=== PATIENT | male | born 1945 | race Caucasian/White ===

== ENCOUNTER → 2017-01-02 | Outpatient (CLI) | payer OTHER, MEDICARE ==
[~2017-01-02] MED LIST: ALLOPURINOL 10100 M1 PO; ASPIRIN EC81 M1; ASPIRIN325 PO; CALCIUM + VIT1 EACH; CARVEDILOL3.125 MG PO; CELEXA40 MG PO; CIPROFLOXACIN500 M3; CRESTOR40 MG PO; FISH OIL 1,0001 EAC5; FISH OIL 1,2001 EAC4 PO; FISHOIL; FLAGYL500 MG; PACERONE 200 M200 M1 PO; PLAVIX 300 MG300 MG; VITAMIN D-32000 UNIT PO; VITAMIN D400 UNI1; XANAX 0.5 MG0.5 M1 PO; ZETIA; ZETIA10 MG PO
--- NOTE | ~2017-01-02 | 2DMMODE ---
[facility] [address] [place] [address] 2 D/M-MODE ECHOCARDIOGRAM Name: PHILIPRAZA Jina Room #: REG [facility]#: [id number] Admission: 01/02/17 Attend Phys: Ricky Hopper MD Discharge: Date of : 47 Date of Service: 01/02/17 1510 Report #: [id number] THIS REPORT FOR: //name// APPROVED REPORT Study performed: 01/02/2017 13:46:04 EXAM: Comprehensive 2D, Doppler, and color-flow Echocardiogram Patient Location: Out-Patient Room #: Echo lab Status: routine Other Information Study Quality: Good Indications ICD: CAD 2D Dimensions RVDd: 40.29 mm LVEF(%): 63.72 (>50%) IVSd: 11.31 (7-11mm) LVOT Diam: 22.35 (18-24mm) LVDd: 52.40 mm PWd: 10.60 (7-11mm) Ascending Ao: 31.50 (22-36mm) LVDs: 34.12 (25-40mm) Aortic Root: 34.71 mm IVC: 13.00 mm Cox's LVEF: 63.72 % Volumes Left Atrial Volume (Systole) Single Plane 4CH: 49.75 mL Single Plane 2CH: 45.05 mL LA ESV Index: 25.00 mL/m2 Aortic Valve AoV Peak Yoan.: 1.12 m/s AO Peak Gr.: 5.03 mmHg LVOT Max P.76 mmHg LVOT Max V: 0.97 m/s DALILA Vmax: 3.39 cm2 Mitral Valve E/A Ratio: 0.8 MV Decel. Time: 318.15 ms MV E Max Yoan.: 0.45 m/s MV A Yoan.: 0.53 m/s MV PHT: 92.26 ms [facility] [place] [address] 2 D/M-MODE ECHOCARDIOGRAM Name: RAZA PALACIOS Room #: [facility]#: [id number] Admission: 01/02/17 Attend Phys: Ricky Hopper MD Discharge: Date of : 47 Date of Service: 01/02/17 1510 Report #: [id number] IVRT: 143.02 ms Pulmonary Valve PV Peak Yoan.: 0.80 m/s PV Peak Gr.: 2.56 mmHg Pulmonary Vein P Vein S: 0.65 m/s P Vein A: 0.30 m/s P Vein D: 0.47 m/s P Vein A Dur.: 106.1 msec P Vein S/D Ratio: 1.38 Tricuspid Valve TR Peak Yoan.: 2.51 m/s RAP Estimate: 5.00 mmHg TR Peak Gr.: 25.25 mmHg PA Pressure: 30.00 mmHg Left Ventricle The left ventricle is normal size. There is normal left ventricular wall thickness. The left ventricular systolic function is normal. The left ventricular ejection fraction is within the normal range. LVEF is 55-60%. Grade I - abnormal relaxation pattern. Right Ventricle The right ventricle is normal size. The right ventricular systolic function is normal. Device lead is present in the right ventricle. Atria The left atrium size is normal. The right atrium size is normal. Device lead is present in the right atrium. Aortic Valve The aortic valve is normal in structure. No aortic regurgitation is present. There is no aortic valvular stenosis. Mitral Valve The mitral valve is normal in structure. Trace to mild mitral regurgitation. No evidence of mitral valve stenosis. Tricuspid Valve The tricuspid valve is normal in structure. There is trace tricuspid regurgitation. The right atrial pressure is estimated at 5 mmHg. There is no pulmonary hypertension. Pulmonic Valve The pulmonary valve is normal in structure. There is no pulmonic valvular regurgitation. [facility] [address] [place] [address] 2 D/M-MODE ECHOCARDIOGRAM Name: PHILIPRAZA Jina Room #: REG [facility]#: [id number] Admission: 01/02/17 Attend Phys: Ricky Hopper MD Discharge: Date of : 47 Date of Service: 01/02/17 1510 Report #: [id number] Great Vessels The aortic root is normal in size. IVC is normal in size and collapses >50% with inspiration. Pericardium There is no pericardial effusion. <Conclusion> The left ventricle is normal size. The left ventricular systolic function is normal. Grade I - abnormal relaxation pattern. The right ventricle is normal size. The left atrium size is normal. Device lead is present in the right ventricle. The aortic valve is normal in structure. Trace to mild mitral regurgitation. There is no pericardial effusion. <ELECTRONICALLY SIGNED> By: Ricky Hopper MD 01/02/17 1510 [id number] Ricky Hopper MD /INF
== END ==
LOC: CV 11:38
DX: I25.10 Atherosclerotic heart disease of native coronary artery without angina pectoris (principal)

== ENCOUNTER → 2017-07-31 | Outpatient (CLI) | payer OTHER, MEDICARE | LOC: RAD 11:22 | DX: J18.9 Pneumonia, unspecified organism (principal); J98.11 Atelectasis ==

== ENCOUNTER → 2018-10-07 | Outpatient (CLI) | payer OTHER, MEDICARE | LOC: RAD 10:14 | DX: R06.02 Shortness of breath (principal); Z79.899 Other long term (current) drug therapy; Z95.0 Presence of cardiac pacemaker ==

== ENCOUNTER → 2019-05-12 | Outpatient (CLI) | payer OTHER, MEDICARE ==
[~2019-05-12] MED LIST changes: +AUGMENTIN 875-1 EACH PO; +FENOFIBRATE150 MG PO; +LEVOXYL50 MCG PO; +MIRALAX119 GM PO
[2019-05-12 12:52] LABS: ALBUMIN 3.9 g/dL (3.4-5.0); DIRECT BILIRUBIN 0.2 mg/dL (<0.1-0.3); TOTAL BILIRUBIN 0.8 mg/dL (<0.1-1.0); TOTAL PROTEIN 7.2 g/dL (6.4-8.2)
== END ==
LOC: RAD 11:55
PROVIDERS: Internal Medicine Cardiovascular Disease
DX: J98.11 Atelectasis (principal); I47.2 Ventricular tachycardia; Z79.899 Other long term (current) drug therapy

== ENCOUNTER 2019-06-08 17:55 | Emergency (ER) | payer OTHER, MEDICARE ==
[~2019-06-08] VITALS: Ht 172.7 cm; Wt 90.7 kg
[~2019-06-08 17:55] MED LIST changes: -AUGMENTIN 875-1 EACH PO; -FENOFIBRATE150 MG PO; -LEVOXYL50 MCG PO; -MIRALAX119 GM PO
[2019-06-08 18:38] LABS: HEMOGLOBIN 13.7 gm/dL (14.0-18.0); MCH 29.6 pg (26.0-34.0); MCHC 33.4 g/dL (28.0-37.0); MCV 88.7 fL (80.0-100.0); PLATELET COUNT 213 thou/uL (150-400); RBC 4.62 mil/uL (4.50-6.00); RDW 15.4 % (10.5-14.5); WBC 9.5 thou/uL (4.0-11.0)
[2019-06-08 18:40] LABS: URINE BILIRUBIN NEGATIVE (Negative); URINE BLOOD NEGATIVE (Negative); URINE CLARITY CLEAR; URINE COLOR YELLOW; URINE GLUCOSE-RANDOM* NEGATIVE (Negative); URINE KETONES NEGATIVE (Negative); URINE LEUKOCYTES-REFLEX NEGATIVE (Negative); URINE NITRITE-REFLEX NEGATIVE (Negative); URINE PROTEIN (DIPSTICK) NEGATIVE (Negative)
[2019-06-08 18:43] LABS: CALCIUM 9.3 mg/dL (8.5-10.1); CREATININE 1.1 mg/dL (0.7-1.3)
[2019-06-08] MEDS ORDERED: LEVOXYL50 MCG PO (18:45)
[2019-06-08] MEDS ORDERED: FENOFIBRATE150 MG PO (18:45)
[2019-06-08 18:50] LABS: ALBUMIN 3.4 g/dL (3.4-5.0); TOTAL BILIRUBIN 0.5 mg/dL (<0.1-1.0)
[2019-06-08 19:11] LABS: ABSOLUTE NEUTROPHILS 5.6 thou/uL (1.4-8.2); MYELOCYTES 1 %
[2019-06-08 19:25] VITALS: BP 136/73
[2019-06-08] MEDS ORDERED: AUGMENTIN 875-1 EACH PO (19:44)
[2019-06-08] MEDS ORDERED: MIRALAX119 GM PO (19:45)
== END 2019-06-08 20:07 | disposition home or self-care (01) ==
LOC: ER 17:55
PROVIDERS: Emergency Medicine
DX: K57.32 Diverticulitis of large intestine without perforation or abscess without bleeding (principal); E78.5 Hyperlipidemia, unspecified; I25.10 Atherosclerotic heart disease of native coronary artery without angina pectoris; Z95.2 Presence of prosthetic heart valve; Z87.442 Personal history of urinary calculi

== ENCOUNTER → 2019-07-29 | Outpatient (CLI) | payer OTHER, MEDICARE ==
[~2019-07-29] VITALS: Ht 172.7 cm; Wt 93.0 kg
[~2019-07-29] MED LIST changes: +AUGMENTIN 875-1 EACH PO; +FENOFIBRATE150 MG PO; +LEVOXYL50 MCG PO; +MIRALAX119 GM PO
[2019-07-29 07:11] VITALS: BP 102/56
[2019-07-29 07:13] LABS: ABSOLUTE NEUTROPHILS 4.8 thou/uL (1.4-8.2); BASOPHILS 1.1 % (0.0-2.0); HEMATOCRIT 44.1 % (42.0-52.0); HEMOGLOBIN 14.5 gm/dL (14.0-18.0); MCH 29.5 pg (26.0-34.0); MCV 89.5 fL (80.0-100.0); MONOCYTES 11.8 % (1.0-8.0); PLATELET COUNT 233 thou/uL (150-400); POLYS 58.1 % (36.0-66.0); RBC 4.93 mil/uL (4.50-6.00); RDW 15.5 % (10.5-14.5); WBC 8.3 thou/uL (4.0-11.0)
[2019-07-29 07:16] LABS: CALCIUM 9.7 mg/dL (8.5-10.1); CREATININE 1.1 mg/dL (0.7-1.3); POTASSIUM 4.2 mmol/L (3.5-5.1)
[2019-07-29 07:17] LABS: PROTIME 10.4 Seconds (9.3-11.4)
[2019-07-29 07:22] LABS: ALBUMIN 3.9 g/dL (3.4-5.0); TOTAL BILIRUBIN 0.6 mg/dL (<0.1-1.0); TOTAL PROTEIN 7.3 g/dL (6.4-8.2)
== END | disposition home or self-care (01) ==
LOC: CATH 06:22
PROVIDERS: Internal Medicine Cardiovascular Disease
DX: Z45.02 Encounter for adjustment and management of automatic implantable cardiac defibrillator (principal); I42.9 Cardiomyopathy, unspecified; I10 Essential (primary) hypertension; E78.5 Hyperlipidemia, unspecified; I25.10 Atherosclerotic heart disease of native coronary artery without angina pectoris; I25.2 Old myocardial infarction; Z98.890 Other specified postprocedural states; Z79.899 Other long term (current) drug therapy; Z87.891 Personal history of nicotine dependence; Z87.19 Personal history of other diseases of the digestive system; Z79.01 Long term (current) use of anticoagulants
CPT/HCPCS: 62110; 62900; 70005

== ENCOUNTER → 2019-11-05 | Outpatient (CLI) | payer OTHER, MEDICARE | LOC: SJCVCIMAG 10-25 08:53 | DX: Z01.818 Encounter for other preprocedural examination (principal); I45.10 Unspecified right bundle-branch block; I25.10 Atherosclerotic heart disease of native coronary artery without angina pectoris; I47.2 Ventricular tachycardia; I10 Essential (primary) hypertension; E78.00 Pure hypercholesterolemia, unspecified; M10.9 Gout, unspecified; G47.30 Sleep apnea, unspecified; E66.9 Obesity, unspecified; Z98.61 Coronary angioplasty status; Z79.899 Other long term (current) drug therapy; Z87.891 Personal history of nicotine dependence ==

== ENCOUNTER → 2020-05-22 | Outpatient (CLI) | payer OTHER ==
[~2020-05-22] MED LIST changes: +CELEXA 20 MG TA20 MG PO; +ROSUVASTATIN CA40 MG PO; +SILDENAFIL CITR50 MG PO; +TAMSULOSIN HCL0.4 MG PO
== END ==
LOC: SJCVC 12:59
PROVIDERS: ATTEND Internal Medicine Cardiovascular Disease
DX: Z45.02 Encounter for adjustment and management of automatic implantable cardiac defibrillator (principal); I25.10 Atherosclerotic heart disease of native coronary artery without angina pectoris; R94.31 Abnormal electrocardiogram [ECG] [EKG]; I45.2 Bifascicular block; I10 Essential (primary) hypertension; E78.00 Pure hypercholesterolemia, unspecified; I47.2 Ventricular tachycardia; Z95.810 Presence of automatic (implantable) cardiac defibrillator; Z79.899 Other long term (current) drug therapy; Z87.891 Personal history of nicotine dependence

== ENCOUNTER → 2020-05-23 | Outpatient (CLI) | payer OTHER ==
[~2020-05-23] MED LIST changes: -CELEXA 20 MG TA20 MG PO; -ROSUVASTATIN CA40 MG PO; -SILDENAFIL CITR50 MG PO; -TAMSULOSIN HCL0.4 MG PO
== END ==
LOC: SJCVCIMAG 07:55
PROVIDERS: ATTEND Internal Medicine Cardiovascular Disease
DX: I08.0 Rheumatic disorders of both mitral and aortic valves (principal); I11.9 Hypertensive heart disease without heart failure; I25.10 Atherosclerotic heart disease of native coronary artery without angina pectoris; Z79.899 Other long term (current) drug therapy

== ENCOUNTER 2020-05-29 09:24 | Emergency (ER) | payer OTHER ==
[~2020-05-29] VITALS: Ht 172.7 cm; Wt 90.7 kg
[2020-05-29] MEDS ORDERED: SILDENAFIL CITR50 MG PO (09:45)
[2020-05-29] MEDS ORDERED: ROSUVASTATIN CA40 MG PO (09:48)
[2020-05-29] MEDS ORDERED: TAMSULOSIN HCL0.4 MG PO (09:49)
[2020-05-29] MEDS ORDERED: CELEXA 20 MG TA20 MG PO (09:50)
[2020-05-29 10:22] LABS: URINE BILIRUBIN NEGATIVE (Negative); URINE BLOOD NEGATIVE (Negative); URINE CLARITY CLEAR; URINE COLOR YELLOW; URINE GLUCOSE-RANDOM* NEGATIVE (Negative); URINE KETONES NEGATIVE (Negative); URINE LEUKOCYTES-REFLEX NEGATIVE (Negative); URINE NITRITE-REFLEX NEGATIVE (Negative); URINE PROTEIN (DIPSTICK) NEGATIVE (Negative); URINE SPECIFIC GRAVITY >= 1.030 (1.005-1.035); URINE UROBILINOGEN 0.2 E.U./dl (0.2-1.0)
[2020-05-29 10:31] LABS: ABSOLUTE NEUTROPHILS 7.7 thou/uL (1.4-8.2); BASOPHILS 1.2 % (0.0-2.0); EOSINOPHILS 1.6 % (0.0-3.0); HEMATOCRIT 42.5 % (42.0-52.0); HEMOGLOBIN 14.4 gm/dL (14.0-18.0); LYMPHOCYTES 16.2 % (24.0-44.0); MCH 30.2 pg (26.0-34.0); MCHC 33.8 g/dL (28.0-37.0); MCV 89.3 fL (80.0-100.0); MONOCYTES 10.7 % (1.0-8.0); PLATELET COUNT 241 thou/uL (150-400); POLYS 70.3 % (36.0-66.0); RBC 4.75 mil/uL (4.50-6.00); RDW 15.4 % (10.5-14.5); WBC 10.9 thou/uL (4.0-11.0)
[2020-05-29 10:41] LABS: CALCIUM 9.1 mg/dL (8.5-10.1); CREATININE 1.2 mg/dL (0.7-1.3); POTASSIUM 4.5 mmol/L (3.5-5.1)
[2020-05-29 10:47] LABS: ALBUMIN 3.7 g/dL (3.4-5.0); TOTAL BILIRUBIN 0.6 mg/dL (0.2-1.0); TOTAL PROTEIN 7.3 g/dL (6.4-8.2)
[2020-05-29 12:03] VITALS: BP 108/62
== END 2020-05-29 12:06 | disposition home or self-care (01) ==
LOC: ER 09:24
PROVIDERS: Emergency Medicine
DX: R33.9 Retention of urine, unspecified (principal); E78.5 Hyperlipidemia, unspecified; I25.10 Atherosclerotic heart disease of native coronary artery without angina pectoris; Z79.899 Other long term (current) drug therapy; Z79.82 Long term (current) use of aspirin

== ENCOUNTER → 2020-06-20 | Outpatient (CLI) | payer OTHER ==
[~2020-06-20] MED LIST changes: +CELEXA 20 MG TA20 MG PO; +ROSUVASTATIN CA40 MG PO; +SILDENAFIL CITR50 MG PO; +TAMSULOSIN HCL0.4 MG PO
== END ==
LOC: SJCVC 10:20
PROVIDERS: ATTEND Internal Medicine Cardiovascular Disease
DX: R94.31 Abnormal electrocardiogram [ECG] [EKG] (principal); I25.10 Atherosclerotic heart disease of native coronary artery without angina pectoris; I45.10 Unspecified right bundle-branch block; I45.2 Bifascicular block; I47.1 Supraventricular tachycardia; I21.19 ST elevation (STEMI) myocardial infarction involving other coronary artery of inferior wall

== ENCOUNTER → 2020-11-17 | Outpatient (CLI) | payer OTHER | LOC: LAB 09:03 | PROVIDERS: ATTEND Internal Medicine Pulmonary Disease | DX: Z01.812 Encounter for preprocedural laboratory examination (principal); Z20.822 Contact with and (suspected) exposure to COVID-19 ==

== ENCOUNTER → 2020-11-20 | Outpatient (CLI) | payer OTHER ==
--- NOTE | 2020-11-28 20:08 | PFR/MVV ---
[facility] [place] [address] [place] [address] PULMONARY FUNCTION MVV/REPORT Name: PHILIPRAZA DANICA Room #: REG [facility].#: [id number] Admission: 11/20/20 Attend Phys: Santino Pichardo MD Discharge: Date of : 47 Report #: [id number] THIS REPORT FOR: //name// >> SPIROMETRY: (BTPS) Height: in cm Weight: lbs kg Exam Date: PRE-RX POST-RX PRED BEST %PRED BEST %PRED %CHG FVC LITERS . . . . . . FEV1 LITERS . . . . . . FEV1/FVC % . . . . . . CXJ79-15% L/Sec . . . . . . PEF L/SEC . . . . . . FEF50/FIF50 UNITLESS . . . . . . MVV L/Min . . . f 1/Min . . . >> LUNG VOLUMES: (BTPS) PRE-RX POST-RX PRED AVG %PRED AVG %PRED %CHG VC Liters . . . . . . TLC Liters . . . . . . RV Liters . . . . . . RV/TLC % . . . . . . FRC PL Liters . . . . . . FRC N2 Liters . . . . . . ERV Liters . . . . . . IC Liters . . . . . . >> DIFFUSION: DLCO ml/Min/mmHg . . . . . . DL Carol ml/Min/mmHg . . . . . . DLCO/VA ml/Min/mmHg . . . . . . VA Liters . . . . . . COMMENTS: COMMENTS: >> RESISTANCE: [facility] [address] [place] [address] PULMONARY FUNCTION MVV/REPORT Name: RAZA PALACIOS DANICA Room #: REG [facility] [id number] Admission: 11/20/20 Attend Phys: Santino Pichardo MD Discharge: Date of : 47 Report #: [id number] PRE-RX PRED AVG %PRED Raw Total cmH20/L/Sec . . . Raw Insp cmH20/L/Sec . . . Raw Exp cmH20/L/Sec . . . Raw cmH20/L/Sec . . . Gaw L/Sec/cmH20 . . . sRaw cmH20 Sec . . . sGaw l/cmH20 Sec . . . Vtq Liters . . . # = OUTSIDE 95% CONFIDENCE INTERVAL CALIBRATION: PRED: 3.00 ACTUAL: EXP 3.01 INSP 3.02 [facility]-OL10 [facility]- [id number] >> INTERPRETATION/IMPRESSION: DOC #: [id number] Jesse Patterson M.D. DATE OF SERVICE: 11/20/2020 PULMONARY FUNCTION STUDIES SPIROMETRY: FEV1 is 3.12 liters (121%), FVC is 3.81 liters (99%), FEV1/FVC ratio is 82%. There is no significant response to bronchodilator therapy. LUNG VOLUMES: Total lung capacity is 5.19 liters (90%). RV is 1.38 liters (58%). Diffusing capacity is 83%. IMPRESSION: Pulmonary function studies are consistent with normal pulmonary function. There is no significant response to bronchodilator therapy. Diffusing capacity and lung volumes are normal. Jesse Patterson M.D. JCS/LISA <ELECTRONICALLY SIGNED> By: Jesse Patterson MD 11/28/202007 Jesse Patterson MD /nt
== END ==
LOC: PUL 10:29
PROVIDERS: ATTEND Internal Medicine Pulmonary Disease
DX: R06.02 Shortness of breath (principal)

== ENCOUNTER → 2020-11-22 | Outpatient (CLI) | payer OTHER | LOC: SJCVC 10:05 | PROVIDERS: ATTEND Internal Medicine Cardiovascular Disease | DX: I25.10 Atherosclerotic heart disease of native coronary artery without angina pectoris (principal); R94.31 Abnormal electrocardiogram [ECG] [EKG]; I45.2 Bifascicular block; I10 Essential (primary) hypertension; I47.2 Ventricular tachycardia; M10.9 Gout, unspecified; E78.5 Hyperlipidemia, unspecified; G47.30 Sleep apnea, unspecified; E03.9 Hypothyroidism, unspecified; Z98.61 Coronary angioplasty status; Z95.810 Presence of automatic (implantable) cardiac defibrillator; E78.00 Pure hypercholesterolemia, unspecified; Z79.82 Long term (current) use of aspirin; Z79.899 Other long term (current) drug therapy; Z87.891 Personal history of nicotine dependence ==

== ENCOUNTER → 2021-07-03 | Outpatient (CLI) | payer OTHER | LOC: SJCVC 08:53 | PROVIDERS: ATTEND Internal Medicine Cardiovascular Disease | DX: I45.10 Unspecified right bundle-branch block (principal); R00.1 Bradycardia, unspecified; R94.31 Abnormal electrocardiogram [ECG] [EKG]; I47.2 Ventricular tachycardia; I25.10 Atherosclerotic heart disease of native coronary artery without angina pectoris; I10 Essential (primary) hypertension; E78.5 Hyperlipidemia, unspecified; E03.9 Hypothyroidism, unspecified; G47.33 Obstructive sleep apnea (adult) (pediatric); I65.29 Occlusion and stenosis of unspecified carotid artery; M10.9 Gout, unspecified; Z79.82 Long term (current) use of aspirin; Z79.84 Long term (current) use of oral hypoglycemic drugs; Z79.899 Other long term (current) drug therapy ==

== ENCOUNTER → 2021-08-10 | Outpatient (CLI) | payer OTHER | LOC: NUC 08:09 | PROVIDERS: ATTEND Internal Medicine | DX: C79.51 Secondary malignant neoplasm of bone (principal) ==